=== PATIENT | male | born 2000 | race Caucasian/White ===

== ENCOUNTER 2020-09-28 13:23 | Emergency (ER) | payer OTHER ==
[~2020-09-28 13:23] MED LIST: CLEOCIN HCL300 MG PO; PREDNISONE 50 M50 MG PO
[2020-09-28] MEDS ORDERED: BACITRACIN28.4 GM TP (15:00)
[2020-09-28] MEDS ORDERED: IBUPROFEN800 MG PO (15:01)
[2020-09-28] MEDS ORDERED: HYDROCODON-ACE1 EAC4 PO (15:04)
== END 2020-09-28 17:08 | disposition home or self-care (01) ==
LOC: ER1 13:23
DX: T24.221A Burn of second degree of right knee, initial encounter (principal); T23.272A Burn of second degree of left wrist, initial encounter; T25.212A Burn of second degree of left ankle, initial encounter; T31.0 Burns involving less than 10% of body surface; F17.290 Nicotine dependence, other tobacco product, uncomplicated; X08.8XXA Exposure to other specified smoke, fire and flames, initial encounter; Y92.009 Unspecified place in unspecified non-institutional (private) residence as the place of occurrence of the external cause
CPT/HCPCS: 16020; 36600; 71045; 82805; 94664; 94760; 96374; 99284; J2270; J7030

== ENCOUNTER 2021-04-07 21:03 | Inpatient (IN) | payer OTHER ==
[~2021-04-07] VITALS: Ht 175.3 cm; Wt 63.5 kg
[~2021-04-07 21:03] MED LIST changes: +BACITRACIN28.4 GM TP; +HYDROCODON-ACE1 EAC4 PO; +IBUPROFEN800 MG PO
[2021-04-08 15:08] LABS: BUN/CREATININE RATIO 7 (0-10)
--- NOTE | 2021-04-08 20:09 | NUR ---
PT STATES HE HAD A SEVERE ALLERGIC REACTION BEFORE WHICH CAUSED HIM TO BE IN ICU. DR. POWER NOTIFIED; ORDER TO DC MED. ALLERGY LIST UPDATED AND MEDICATION DC'D.
[2021-04-09 03:58] LABS: HEMOGLOBIN 15.6 gm/dl (14.0-17.5); RED BLOOD COUNT 5.16 M/UL (4.20-5.50)
[2021-04-09 04:35] LABS: BUN/CREATININE RATIO 10 (0-10)
[2021-04-10] MEDS ORDERED: CLINDAMYCIN HC300 MG PO (13:14)
[2021-04-10] MEDS ORDERED: NICOTINE PATCH1 EAC2 TOP (13:14)
[2021-04-10] MEDS ORDERED: PERCOCET 7.5-31 EACH PO (13:14)
[2021-04-10] MEDS ORDERED: PEPCID20 MG PO (13:19)
[2021-04-10] MEDS ORDERED: ASPIRIN EC325 MG PO (13:19)
--- NOTE | 2021-04-10 14:40 | NUR ---
UPON DOING DRESSING CHANGES ON PATIENT. PATIENT STATES THAT HE HAS NOBODY IN HIS LIFE AND THAT HE WANTS TO DRIFT AWAY IN A DREAM. I ASKED PATIENT IF HE WISHES HE WAS AND HE SAID YES. PATIENT STATES THAT HE HAS HAD A SUICIDE ATTEMPT IN THE PAST. PROVIDER CONTACTED AND NEW ORDERS GIVEN. PRODUCTION TROUBLESHOOTER AND DIRECTOR OF ROTC MADE AWARE. SUICIDE PRECAUTIONS PUT IN PLACE.
--- NOTE | 2021-04-10 17:11 | NUR ---
PATIENT DENIES ALL SI IDEATION AT THIS TIME TO MYSELF, INSOLE ROUNDER, AND . PATIENT WAS GIVEN INSTRUCTION TO REPORT BACK TO THE ER IF HE HAS ANY SI IDEATION. PATIENT DISCHARGED HOME IN CARE OF FRIEND. PATIENT GIVEN CRUTCHES AND WOUND CARE SUPPLIES.
== END 2021-04-10 17:34 | disposition home or self-care (01) | DRG 488 ==
LOC: ER1 21:03 → M/S 04-08 04:19 → CDU 04-08 04:19 → M/S 04-08 05:33
PROVIDERS: Nurse Practitioner Family; Orthopaedic Surgery; ADMIT Internal Medicine Infectious Disease
PROC: 0S9D0ZZ Drainage of Left Knee Joint, Open Approach (ICD-10-PCS; 2021-04-08)
PROC: 0LQR0ZZ Repair Left Knee Tendon, Open Approach (ICD-10-PCS; principal; 2021-04-08 13:00)
DX: S76.122A Laceration of left quadriceps muscle, fascia and tendon, initial encounter (principal); T79.7XXA Traumatic subcutaneous emphysema, initial encounter; Z20.822 Contact with and (suspected) exposure to COVID-19; S81.012A Laceration without foreign body, left knee, initial encounter; F17.210 Nicotine dependence, cigarettes, uncomplicated; J45.909 Unspecified asthma, uncomplicated; Z88.6 Allergy status to analgesic agent; Z91.030 Bee allergy status; Y08.89XA Assault by other specified means, initial encounter; Y92.009 Unspecified place in unspecified non-institutional (private) residence as the place of occurrence of the external cause
CPT/HCPCS: 36415; 71045; 73130; 73564; 73590; 73700; 80048; 80053; 85025; 96374; 96375; 99284; J0690; J1100; J2001; J2270; J2405; J2704; J3010; J7030; J7050; J7120; U0002

== ENCOUNTER 2021-06-03 13:10 | Emergency (ER) | payer OTHER ==
[~2021-06-03 13:10] MED LIST changes: +ASPIRIN EC325 MG PO; +CLINDAMYCIN HC300 MG PO; +NICOTINE PATCH1 EAC2 TOP; +PEPCID20 MG PO; +PERCOCET 7.5-31 EACH PO
== END 2021-06-03 15:42 | disposition home or self-care (01) ==
LOC: ER1 13:10
DX: S49.92XA Unspecified injury of left shoulder and upper arm, initial encounter (principal); S89.92XA Unspecified injury of left lower leg, initial encounter; Y09 Assault by unspecified means
CPT/HCPCS: 73030; 73562; 96372; 99284; J1885